=== PATIENT | male | born 1960 ===

== ENCOUNTER 2018-02-18 12:21 | Inpatient (IN) | payer OTHER ==
[2018-02-18 14:35] LABS: BASO % 0.3 % (0.0-2.0); EOS # 0.1 K/uL (0.0-0.7); EOS % 1.9 % (0.0-4.0); HEMOGLOBIN 14.6 g/dL (12.0-18.0); LYMPH # 1.5 K/uL (1.0-4.3); MEAN CELL VOLUME 87.4 fl (80.0-94.0); MEAN CORPUSCULAR HEMOGLOBIN 29.1 pg (27.0-31.0); MEAN CORPUSCULAR HGB CONC 33.3 g/dL (33.0-37.0); MEAN PLATELET VOLUME 8.1 fl (7.2-11.7); MONO # 0.5 K/uL (0.0-0.8); MONO % 8.8 % (0.0-10.0); NEUT # 3.7 K/uL (1.8-7.0); NRBC % 0.1 % (0.0-0.0); RED CELL DISTRIBUTION WIDTH 12.3 % (11.5-14.5); WHITE BLOOD COUNT 5.8 K/uL (4.8-10.8)
--- NOTE | 2018-02-18 14:39 | ED PDOC ---
HPI: Back Time Seen by Provider: 02/18/18 13:09 Chief Complaint (Nursing): Back Pain Chief Complaint (Provider): Back Pain History Per: Patient, [employer] ([place] - [id number]) Onset/Duration Of Symptoms: Days (since 06/2017), Worse Since (x3 days) Previous Symptoms: Back Pain Additional Complaint(s): 57 year old male presents to the ED for evaluation of lower back pain that has worsened over the past x3 days. 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 He had a surgery to repair his legs and has had lower back pain since. He followed up with worker's comp and had an MRI of lumbar spine and in that report which patient brought with him it shows he has L3 through S1 disc herniations. Patient was sent to ED by his PMD, Dr. Matta for further evaluation. Patient reports he took Tylenol yesterday with no relief. Patient reports difficulty sleeping due to the pain as well as difficulty ambulating. Patient denies saddle anesthesia, weakness, numbness, incontinence, IVDA, fever, abdominal pain, chest pain, SOB, N/V/D. PMD: Vitaliy Matta Past Medical History Reviewed: Historical Data, Nursing Documentation, Vital Signs Vital Signs: Last Vital Signs Temp 99.0 F 02/18/18 12:48 Pulse 82 02/18/18 12:48 Resp 19 02/18/18 12:48 BP 138/96 H 02/18/18 12:48 Pulse Ox 97 02/18/18 12:48 - Medical History PMH: No Chronic Diseases - Surgical History Other surgeries: ORIF for Leg Fractures - Family History Family History: States: Unknown Family Hx - Home Medications Home Medications: Ambulatory Orders Medication Instructions Recorded Acetaminophen [Tylenol 325mg tab] 325 mg PO Q6 PRN 02/18/18 RX: Aspirin [Ecotrin] 81 mg PO Q48H 02/18/18 - Allergies Allergies/Adverse Reactions: Allergies Allergy/AdvReac Type Severity Reaction Status Date / Time No Known Allergies Allergy Verified 02/18/18 12:48 Review of Systems ROS Statement: Except As Marked, All Systems Reviewed And Found Negative Musculoskeletal: Positive for: Back Pain Physical Exam - Reviewed Nursing Documentation Reviewed: Yes Vital Signs Reviewed: Yes - Physical Exam Comments: GENERAL APPEARANCE: Patient is awake, alert, oriented x 3, in no acute distress. Patient is ambulatory in ED with steady gait. SKIN: Warm, dry; (-) cyanosis. ENMT: Mucous membranes moist. Airway patent, (-) stridor. NECK: Supple, FROM CHEST AND RESPIRATORY: (-) rales, (-) rhonchi, (-) wheezes; breath sounds equal bilaterally. Respirations even and nonlabored. HEART AND CARDIOVASCULAR: (-) irregularity ABDOMEN AND GI: Soft; (-) tenderness; (-) palpable mass. BACK: (+) diffuse midline lumbar and paralumbar tenderness. NEURO AND PSYCH: Mental status as above. Intact sensation bilaterally; normal strength in extension of the knees, plantar and dorsiflexion of the toes. Speech: clear. (-) facial asymmetry (-) aphasia. - Laboratory Results Result Diagrams: 02/18/18 14:27 02/18/18 14:27 Urine dip results: Negative for: Leukocyte Esterase, Blood, Nitrate, Ketones, Glucose, Bilirubin, Protein - ECG O2 Sat by Pulse Oximetry: 97 (RA) Pulse Ox Interpretation: Normal Medical Decision Making Medical Decision Making: Time: 13:40 Impression: Intractable back pain, herniated discs of lumbar spine Initial Plan: * CMP * ED Urine dip * CBC w/ diff * PTT * Prothrombin time * Ultram PO * Re-evaluation [address] Khuory, resident covering for Dr Hernandez. Arrangements made for admission to med/surg. Patient agreeable to admission at this time. Vitals stable. Udip reviewed and unremarkable. 1515 Labs reviewed and grossly unremarkable. Scribe Attestation: Documented by Julio Wahl, acting as a scribe for Belkys Corona PA-C. Provider Scribe Attestation: All medical record entries made by the Scribe were at my direction and personally dictated by me. I have reviewed the chart and agree that the record accurately reflects my personal performance of the history, physical exam, medical decision making, and the department course for this patient. I have also personally directed, reviewed, and agree with the discharge Disposition - Clinical Impression Clinical Impression: Low back pain, Lumbar herniated disc - Patient ED Disposition Is Patient to be Admitted: Yes Counseled Patient/Family Regarding: Studies Performed, Diagnosis - Disposition Disposition Time: 14:45 Condition: STABLE - Pt Status Changed To: Hospital Disposition Of: Inpatient - Admit Certification Admit to Inpatient:: After my assessment, the patient will require hospitalization for at least two midnights. This is because of the severity of symptoms shown, intensity of services needed, and/or the medical risk in this patient being treated as an outpatient. - POA Present On Arrival: Falls Or Trauma (june 2017) Results - Lab Results Lab Results: 02/18/18 02/18/18 02/18/18 14:27 14:27 14:27 WBC 5.8 RBC 5.00 Hgb 14.6 Hct 43.7 MCV 87.4 MCH 29.1 MCHC 33.3 RDW 12.3 Plt Count 219 MPV 8.1 Neut % (Auto) 63.0 Lymph % (Auto) 26.0 [place] % (Auto) 8.8 Eos % (Auto) 1.9 Baso % (Auto) 0.3 Neut # (Auto) 3.7 Lymph # (Auto) 1.5 [place] # (Auto) 0.5 Eos # (Auto) 0.1 Baso # (Auto) 0.0 PT 10.8 INR 1.0 APTT 30.3 Sodium 139 Potassium 4.3 Chloride 108 H Carbon Dioxide 22 Anion Gap 13 BUN 13 Creatinine 0.7 L Est GFR ( Amer) > 60 Est GFR (Non-Af Amer) > 60 Random Glucose 96 Calcium 9.3 Total Bilirubin 0.5 AST 22 ALT 42 Alkaline Phosphatase 91 Total Protein 7.5 Albumin 4.1 Globulin 3.4 Albumin/Globulin Ratio 1.2
[2018-02-18 14:46] LABS: PROTHROMBIN TIME 10.8 Seconds (9.8-13.1)
[2018-02-18 14:49] LABS: ALB/GLOB RATIO 1.2 (1.0-2.1); ALBUMIN 4.1 g/dL (3.5-5.0); ALT/SGPT 42 U/L (21-72); AST/SGOT 22 U/L (17-59); BLOOD UREA NITROGEN 13 mg/dl (9-20); CALCIUM 9.3 mg/dL (8.4-10.2); GFR NON-AFRICAN AMERICAN > 60; PARTIAL THROMBOPLASTIN TIME 30.3 Seconds (25.6-37.1)
[2018-02-18] MEDS ORDERED: Oxycodone/Acetaminophen 5/325 mg Tab PO PRN (14:52)
[2018-02-18] MEDS ORDERED: Alum-Mag Hydrox-Simethicone Susp (30 mL) PO PRN (14:52)
--- NOTE | 2018-02-18 16:00 | CP.PCM.CON ---
History of Present Illness - History of Present Illness History of Present Illness: Neurosurgical consult: Dr. Matta Patient is a 57 y/o male with no significant PMH who presents to [facility] with severe lower back pain. 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 He fractured both ankles which both necessitated ORIF. He admits to progressive lower back pain since the time of the injury negatively affecting his daily activities such as sitting, walking and lying down when sleeping. He admits to pain radiating to both legs, left greater than right, associated with occassional numbness and tingling. He denies saddle paresthesias and bowel/bladder incontinence. He also admits to a injury which occurred as a child as he fell onto a large stick impaling his lower back. The wound was repaired but left a large indent to his mid lower back. He also denies CP/SOB/N/V/D/fever/dysuria/melena. Review of Systems - Review of Systems All systems: reviewed and no additional remarkable complaints except Review of Systems: as per HPI Past Patient History - Infectious Disease Hx of Infectious Diseases: None - Past Medical History & Family History Past Family History: Reviewed and not pertinent - Past Social History Smoking Status: Never Smoked Alcohol: None Drugs: Denies - CARDIAC Hx Cardiac Disorders: No - PULMONARY Hx Respiratory Disorders: No - NEUROLOGICAL Hx Neurological Disorder: No - HEENT Hx HEENT Problems: No - RENAL Hx Chronic Kidney Disease: No - ENDOCRINE/METABOLIC Hx Endocrine Disorders: No - HEMATOLOGICAL/ONCOLOGICAL Hx Blood Disorders: No - INTEGUMENTARY Hx Dermatological Problems: No - MUSCULOSKELETAL/RHEUMATOLOGICAL Hx Musculoskeletal Disorders: Yes Hx Back Pain: Yes - GASTROINTESTINAL Hx Gastrointestinal Disorders: No - GENITOURINARY/GYNECOLOGICAL Hx Genitourinary Disorders: No - PSYCHIATRIC Hx Psychophysiologic Disorder: No Hx Substance Use: No - SURGICAL HISTORY Hx Surgeries: Yes Other/Comment: BILATERAL ANKLE ORIF 06/2017 - ANESTHESIA Hx Anesthesia: Yes Hx Anesthesia Reactions: No Hx Malignant Hyperthermia: No Meds Allergies/Adverse Reactions: Allergies Allergy/AdvReac Type Severity Reaction Status Date / Time No Known Allergies Allergy Verified 02/18/18 12:48 - Medications Medications: Current Medications Acetaminophen (Tylenol 325mg Tab) 650 mg PO Q4 PRN PRN Reason: Pain, moderate (4-7) Al Hydrox/Mg Hydrox/Simethicone (Maalox Plus 30 Ml) 30 ml PO DAILY PRN PRN Reason: Indigestion / Heartburn Oxycodone/Acetaminophen (Percocet 5/325 Mg Tab) 1 tab PO Q4 PRN PRN Reason: Pain, severe (8-10) Stop: 02/21/18 14:53 Physical Exam - Constitutional Appears: Well, No Acute Distress - Head Exam Head Exam: ATRAUMATIC, NORMOCEPHALIC - Eye Exam Eye Exam: EOMI, Normal appearance, PERRL - ENT Exam ENT Exam: Mucous Membranes Moist - Neck Exam Neck exam: Positive for: Tenderness (midline, mild pain with ROM) - Respiratory Exam Respiratory Exam: NORMAL BREATHING PATTERN - Cardiovascular Exam Cardiovascular Exam: +S1, +S2 - GI/Abdominal Exam GI & Abdominal Exam: Soft. absent: Tenderness - Extremities Exam Extremities exam: Positive for: normal inspection Additional comments: bilateral lateral ankle scars well healed - Back Exam Additional comments: Large indent to mid lower back no lesions, no masses, no drainage, no erythema tenderness to lumbar midline and bilateral paraspinal sensation intact FN/SP/DP/TN motor intact EHL/FHL/TA/G reflexes intact neg clonus neg b/l SLR in supine position - Neurological Exam Neurological exam: Alert, CN II-XII Intact, Oriented x3 - Psychiatric Exam Psychiatric exam: Normal Affect, Normal Mood - Skin Skin Exam: Normal Color, Warm Results - Vital Signs Recent Vital Signs: Last Vital Signs Temp 99.0 F 02/18/18 12:48 Pulse 82 02/18/18 12:48 Resp 19 02/18/18 12:48 BP 138/96 H 02/18/18 12:48 Pulse Ox 97 02/18/18 15:15 - Labs Result Diagrams: 02/18/18 14:27 02/18/18 14:27 Labs: Laboratory Results - last 24 hr 02/18/18 02/18/18 02/18/18 14:27 14:27 14:27 WBC 5.8 RBC 5.00 Hgb 14.6 Hct 43.7 MCV 87.4 MCH 29.1 MCHC 33.3 RDW 12.3 Plt Count 219 MPV 8.1 Neut % (Auto) 63.0 Lymph % (Auto) 26.0 [place] % (Auto) 8.8 Eos % (Auto) 1.9 Baso % (Auto) 0.3 Neut # (Auto) 3.7 Lymph # (Auto) 1.5 [place] # (Auto) 0.5 Eos # (Auto) 0.1 Baso # (Auto) 0.0 PT 10.8 INR 1.0 APTT 30.3 Sodium 139 Potassium 4.3 Chloride 108 H Carbon Dioxide 22 Anion Gap 13 BUN 13 Creatinine 0.7 L Est GFR ( Amer) > 60 Est GFR (Non-Af Amer) > 60 Random Glucose 96 Calcium 9.3 Total Bilirubin 0.5 AST 22 ALT 42 Alkaline Phosphatase 91 Total Protein 7.5 Albumin 4.1 Globulin 3.4 Albumin/Globulin Ratio 1.2 Assessment & Plan (1) Lumbar spondylosis Assessment and Plan: -Dr. Matta recommends OR tomorrow AM for L L5-S1 lumbar laminotomy -admit to Dr. Hernandez -NPO pMN -Risks/benefits/alternatives were d/w patient who understands and agrees to proceed with procedure above. -above d/w Dr. Matta in agreement Status: Acute
[2018-02-18] MEDS ORDERED: Sodium Chloride 0.9% 1,000 ML IV SCH (22:30)
[2018-02-19] MEDS ORDERED: Propofol 10 mg/ml Inj (20 ML) ONE (07:25)
[2018-02-19] MEDS ORDERED: Rocuronium 10 mg/ml (5 ml) ONE (07:25)
[2018-02-19] MEDS ORDERED: Midazolam 2 MG/2 ML VIAL ONE (07:25)
[2018-02-19] MEDS ORDERED: Neostigmine 1:1000 (1 mg/ml) Inj ONE (07:26)
[2018-02-19] MEDS ORDERED: Succinylcholine 200 mg/10 ml Inj IV ONE (07:26)
[2018-02-19] MEDS ORDERED: Lidocaine 1% 5ml Abboject ONE (07:26)
[2018-02-19] MEDS ORDERED: Lidocaine 4% (Laryng-O-Jet) Kit MM ONE (07:26)
[2018-02-19] MEDS ORDERED: Bacitracin Ointment 30 GM TUBE ONE (08:02)
[2018-02-19] MEDS ORDERED: Lidocaine 1% w Epi 1:100,000 Inj ONE (08:03)
[2018-02-19] MEDS ORDERED: Lactated Ringer's 1,000 ML IV ONE ×2 (09:00→10:10)
[2018-02-19] MEDS ORDERED: Phenylephrine 10 mg/ml Inj ONE (09:33)
[2018-02-19] MEDS ORDERED: Absorbable Gelatin Sponge Size 12-7 ONE ×2 (09:38→10:01)
[2018-02-19] MEDS ORDERED: Bupivacaine 0.5% Inj(30mL) ONE (09:38)
[2018-02-19] MEDS ORDERED: Absorbable Gelatin Sponge Size 12-7 TP ONE (10:01)
[2018-02-19] MEDS ORDERED: Bupivacaine 0.5% Inj(30mL) IJ ONE (10:35)
[2018-02-19] MEDS ORDERED: Oxycodone/Acetaminophen 5/325 mg Tab PO PRN (10:47)
[2018-02-19] MEDS ORDERED: HYDROmorphone 0.5 mg/0.5 ml ISec IVP PRN (10:59)
[2018-02-19] MEDS ORDERED: Lactated Ringer's 1,000 ML IV SCH ×2 (11:00)
--- NOTE | 2018-02-19 11:18 | PCM.SURG1 ---
Surgeon's Initial Post Op Note - Surgeon's Notes Surgeon: Vitaliy Matta MD Commissary Worker: Josef Harris PA-C Type of Anesthesia: General Endo Anesthesia Administered By: Harjeet MCGOWAN Pre-Operative Diagnosis: Lumbar spondylosis Operative Findings: L5-S1 lumbar spondylosis and Left sided HNP Post-Operative Diagnosis: as above Operation Performed: L5-S1 laminotomy and microdiscectomy Specimen/Specimens Removed: none Estimated Blood Loss: EBL {In ML}: 180 Blood Products Given: N/A Drains Used: No Drains (x1 left) Post-Op Condition: Good Date of Surgery/Procedure: 02/19/18 Time of Surgery/Procedure: 08:57
--- NOTE | 2018-02-19 14:50 | CP.PCM.HP ---
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 Pt reports low back pain is severe, radiates to both legs till feet, and associated with intermittent parestehsias. Pt is sc heduled to have a lumbar orthopedic surgical procedure. --Today, pt was seen and examined by bedside at recovery PACU with Dr Hernandez. Pt reported feeling OK, denied pain. Pt afebrile with NO acute events overnight. PMHx: denied PSHx: denied FHx: NC SHx: denied tobacco, alcohol or rec drugs Present on Admission - Present on Admission Any Indicators Present on Admission: No Review of Systems - Constitutional Constitutional: absent: Chills, Fever - EENT Eyes: absent: Change in Vision Nose/Mouth/Throat: absent: Nasal Congestion, Dysphagia, Sore Throat, Neck Pain - Cardiovascular Cardiovascular: absent: Chest Pain, Claudication, Dyspnea, Edema - Respiratory Respiratory: absent: Cough, Dyspnea, Hemoptysis - Gastrointestinal Gastrointestinal: absent: Abdominal Pain, Bloating, Hematochezia, Nausea, Vomiting - Genitourinary Genitourinary: absent: Dysuria, Hematuria Past Patient History - Infectious Disease Hx of Infectious Diseases: None - Past Medical History & Family History Past Medical History?: Yes - Past Social History Smoking Status: Never Smoked - CARDIAC Hx Cardiac Disorders: No - PULMONARY Hx Respiratory Disorders: No - NEUROLOGICAL Hx Neurological Disorder: No - HEENT Hx HEENT Problems: No - RENAL Hx Chronic Kidney Disease: No - ENDOCRINE/METABOLIC Hx Endocrine Disorders: No - HEMATOLOGICAL/ONCOLOGICAL Hx Blood Disorders: No - INTEGUMENTARY Hx Dermatological Problems: No - MUSCULOSKELETAL/RHEUMATOLOGICAL Hx Musculoskeletal Disorders: Yes Hx Falls: Yes - GASTROINTESTINAL Hx Gastrointestinal Disorders: No - GENITOURINARY/GYNECOLOGICAL Hx Genitourinary Disorders: No - PSYCHIATRIC Hx Psychophysiologic Disorder: No Hx Substance Use: No - SURGICAL HISTORY Hx Surgeries: Yes Other/Comment: BILATERAL ANKLE ORIF 06/2017 - ANESTHESIA Hx Anesthesia: Yes Hx Anesthesia Reactions: No Hx Malignant Hyperthermia: No Meds Allergies/Adverse Reactions: Allergies Allergy/AdvReac Type Severity Reaction Status Date / Time No Known Allergies Allergy Verified 02/18/18 12:48 Physical Exam - Constitutional Appears: Well, No Acute Distress - Head Exam Head Exam: NORMAL INSPECTION - Eye Exam Eye Exam: EOMI, Normal appearance - ENT Exam ENT Exam: Mucous Membranes Moist - Neck Exam Neck exam: Positive for: Full Rom, Normal Inspection. Negative for: Meningismus - Respiratory Exam Respiratory Exam: NORMAL BREATHING PATTERN. absent: Rales, Rhonchi, Wheezes - Cardiovascular Exam Cardiovascular Exam: +S1, +S2 - GI/Abdominal Exam GI & Abdominal Exam: Soft, Tenderness. absent: Guarding, Rigid - Extremities Exam Extremities exam: Negative for: calf tenderness, pedal edema, tenderness - Neurological Exam Neurological exam: Alert, Oriented x3 Results - Vital Signs Recent Vital Signs: Last Vital Signs Temp 98.2 F 02/19/18 13:02 Pulse 100 H 02/19/18 13:02 Resp 17 02/19/18 13:02 BP 128/81 02/19/18 13:02 Pulse Ox 95 02/19/18 13:02 - Labs Result Diagrams: 02/18/18 14:27 02/18/18 14:27 Labs: Laboratory Results - last 24 hr 02/18/18 02/18/18 14:27 14:27 PT 10.8 INR 1.0 APTT 30.3 Sodium 139 Potassium 4.3 Chloride 108 H Carbon Dioxide 22 Anion Gap 13 BUN 13 Creatinine 0.7 L Est GFR ( Amer) > 60 Est GFR (Non-Af Amer) > 60 Random Glucose 96 Calcium 9.3 Total Bilirubin 0.5 AST 22 ALT 42 Alkaline Phosphatase 91 Total Protein 7.5 Albumin 4.1 Globulin 3.4 Albumin/Globulin Ratio 1.2 Assessment & Plan - Assessment and Plan (Free Text) Assessment: 57 y/o M with NO PMHx admitted for evaluation and management s/p Lumbar microdistectomy L5-S1. Plan: --Stable --Orthopedic Surgery on board, Dr Matta --Continue management as ordered. Case discussed with Dr Hernandez. - Date & Time Date: 02/19/18 Time: 09:00
--- NOTE | 2018-02-19 15:34 | RAD ---
Date of service: 02/19/2018 PROCEDURE: Intraoperative Fluoroscopy. HISTORY: LUMBAR MICRODISCECTOMY FINDINGS: Fluoroscopic assistance was provided. Fluoroscopy time = 7.8 sec. Radiation dose = 4.94 mGy. Please refer to the operative report for additional details..
[2018-02-19] MEDS ORDERED: Dexamethasone 4 MG in Sodium Chloride 0.9% 50 ML IVPB SCH (16:00)
[2018-02-19] MEDS: Dexamethasone 4 mg/1 ml IVP SCH ×2 (16:28→22:52)
[2018-02-19] MEDS: ceFAZolin 2 GM in Sodium Chloride 0.9% 100 ML IVPB SCH (17:11)
--- NOTE | 2018-02-19 20:36 | CARD ---
APPROVED REPORT Date of service: 02/19/2018 EKG Measurement Heart [id number] <Conclusion> Normal sinus rhythm Normal ECG
[2018-02-19] MEDS: Benzocaine/Menthol (Cepacol) Lozenge PO PRN (23:34)
[2018-02-20] MEDS: ceFAZolin 2 GM in Sodium Chloride 0.9% 100 ML IVPB SCH ×3 (01:06→17:27)
--- NOTE | 2018-02-20 01:22 | OP ---
PROCEDURE DATE: 02/19/2018 PREOPERATIVE DIAGNOSIS: Lumbar herniated disk at L5-S1. POSTOPERATIVE DIAGNOSIS: Lumbar herniated disk at L5-S1. PROCEDURES: Lumbar laminectomy, medial facetectomy and foraminotomy. SURGEON: Vitaliy Matta MD INSULATION NOZZLEMAN: Josef Harris, physician hospital aides and assistants teacher, who helped me to perform the surgery, stayed throughout the case from the beginning to the end. DESCRIPTION OF PROCEDURE: The patient was brought to the operating room and after general endotracheal anesthesia, placed in a prone position on the Heriberto table. Care was taken to protect all the pressure points. Back of the lumbar area was thoroughly prepped and draped in standard sterile manner after marking for the skin incision for lumbar laminectomy at L5-S1. After prepping and draping the area, the skin has been incised. Bleeding skin has been controlled with bipolar government relations analyst. After using a Bovie government relations analyst, paraspinal muscles had been attached to the spinous process of the lamina of L5-S1 on the left side. Pao retractor has been applied to alter the facet joint of L5-S1. At this point, fluoroscopy has been used and confirmed at this level. By using high-speed drill, the lamina of L5-S1 has been drilled. Drilling was continued till the laminectomy on the left side has been performed of L5 and superior part of S1. Later, the medial part of the facet also has been drilled. Ligamentum flavum has been removed. Foraminotomy was performed. Part of the spinous process has been removed and at this point, disk space has been examined. There was herniated disk noted; however, it was not extruded. Hence, foraminotomy which was done helped to the relaxation of never root. After that, hemostasis was best achieved. Heriberto drain was placed in the wound and brought out through a separate stab neck skin incision. Muscles and fascia were closed with 1 Vicryl, subcutaneous tissue with 3-0 Vicryl, and skin has been with intradermal 3-0 Vicryl stitches. The patient tolerated the procedures. After procedure, he was mobilized to the recovery room in stabilized neurological condition. Vitaliy Matta MD [facility] # [id number]
[2018-02-20] MEDS: Dexamethasone 4 mg/1 ml IVP SCH ×3 (04:36→17:29)
[2018-02-20] MEDS: Benzocaine/Menthol (Cepacol) Lozenge PO PRN ×2 (04:46→09:40)
[2018-02-20 06:26] LABS: HEMOGLOBIN 14.2 g/dL (12.0-18.0); MEAN CELL VOLUME 85.9 fl (80.0-94.0); MEAN CORPUSCULAR HEMOGLOBIN 29.3 pg (27.0-31.0); MEAN CORPUSCULAR HGB CONC 34.1 g/dL (33.0-37.0); RBC 4.84 Mil/uL (4.40-5.90); RED CELL DISTRIBUTION WIDTH 12.3 % (11.5-14.5); WHITE BLOOD COUNT 10.4 K/uL (4.8-10.8)
[2018-02-20 06:34] LABS: BLOOD UREA NITROGEN 14 mg/dl (9-20); CALCIUM 9.1 mg/dL (8.4-10.2); GFR NON-AFRICAN AMERICAN > 60
--- NOTE | 2018-02-20 09:44 | CP.PCM.PN ---
Subjective - Date & Time of Evaluation Date of Evaluation: 02/20/18 Time of Evaluation: 08:00 - Subjective Subjective: Patient states pain is well controlled. Denies CP/SOB/dizziness/numbness/tingling. Objective - Vital Signs/Intake and Output Vital Signs (last 24 hours): Temp Pulse Resp BP Pulse Ox 98.3 F 82 19 119/63 93 L 02/20/18 08:02 02/20/18 08:02 02/20/18 08:02 02/20/18 08:02 02/20/18 08:02 Intake and Output: 02/20/18 02/20/18 06:59 18:59 Output Total 55 Balance -55 - Medications Medications: Current Medications Acetaminophen (Tylenol 325mg Tab) 650 mg PO Q6 PRN PRN Reason: Pain, moderate (4-7) Al Hydrox/Mg Hydrox/Simethicone (Maalox Plus 30 Ml) 30 ml PO DAILY PRN PRN Reason: Indigestion / Heartburn Benzocaine/Menthol (Cepacol Sore Throat) 1 norma PO Q4 PRN PRN Reason: Sore Throat Last Admin: 02/20/18 04:46 Dose: 1 norma Cyclobenzaprine HCl (Flexeril) 10 mg PO Q8 PRN PRN Reason: Muscle spasm Dexamethasone (Decadron Inj) 4 mg IVP Q6 [facility] Stop: 02/20/18 16:01 Last Admin: 02/20/18 04:36 Dose: 4 mg Docusate Sodium (Colace) 100 mg PO BID [facility] Last Admin: 02/19/18 16:25 Dose: 100 mg Cefazolin Sodium 2 gm/ Sodium (Chloride) 100 mls @ 100 mls/hr IVPB Q8 [facility]; Protocol Stop: 02/20/18 17:59 Last Admin: 02/20/18 01:06 Dose: 100 mls/hr Lactated Ringer's (Lactated Ringer's) 1,000 mls @ 100 mls/hr IV .Q10H [facility] Last Admin: 02/20/18 07:39 Dose: 100 mls/hr Lactated Ringer's (Lactated Ringer's) 1,000 mls @ 100 mls/hr IV .Q10H [facility] Morphine Sulfate (Morphine) 2 mg IVP Q4 PRN PRN Reason: Pain, severe (8-10) Oxycodone/Acetaminophen (Percocet 5/325 Mg Tab) 1 tab PO Q4 PRN PRN Reason: Pain, severe (8-10) Stop: 02/21/18 14:53 Oxycodone/Acetaminophen (Percocet 5/325 Mg Tab) 2 tab PO Q4 PRN PRN Reason: Pain, moderate (4-7) Stop: 02/22/18 10:48 - Labs Labs: 02/20/18 06:00 02/20/18 06:00 PT 10.8 Seconds (9.8-13.1) 02/18/18 14:27 INR 1.0 02/18/18 14:27 APTT 30.3 Seconds (25.6-37.1) 02/18/18 14:27 - Back Exam Additional comments: 115cc since PACU small amount of sang drainage noted on dressing no erythema +ROM ankle/toes/knees/hips 5/5 sensation intact BLE good bed mobility without pain calves soft NT neg homans Assessment and Plan (1) Lumbar spondylosis Assessment & Plan: POD#1 s/p L5/S1 laminectomy EARLE left intact plan for d/c tomorrow if drain can be pulled PT/OT encourage OOB d/w Dr. Matta, agrees with above Status: Acute
--- NOTE | 2018-02-20 17:07 | CP.PCM.PN ---
Subjective - Date & Time of Evaluation Date of Evaluation: 02/20/18 Time of Evaluation: 11:40 - Subjective Subjective: 57 y/o M seen and examined by bedside. Pt reports feeling well with NO acute complaints. Pt able to complete physical therapy. Pt afebrile, tolerating PO with NO acute events overnight. Objective - Vital Signs/Intake and Output Vital Signs (last 24 hours): Temp Pulse Resp BP Pulse Ox 97.8 F 91 H 18 131/75 93 L 02/20/18 16:46 02/20/18 16:46 02/20/18 16:46 02/20/18 16:46 02/20/18 16:46 Intake and Output: 02/20/18 02/20/18 06:59 18:59 Output Total 55 Balance -55 - Medications Medications: Current Medications Acetaminophen (Tylenol 325mg Tab) 650 mg PO Q6 PRN PRN Reason: Pain, moderate (4-7) Al Hydrox/Mg Hydrox/Simethicone (Maalox Plus 30 Ml) 30 ml PO DAILY PRN PRN Reason: Indigestion / Heartburn Benzocaine/Menthol (Cepacol Sore Throat) 1 norma PO Q4 PRN PRN Reason: Sore Throat Last Admin: 02/20/18 09:40 Dose: 1 norma Cyclobenzaprine HCl (Flexeril) 10 mg PO Q8 PRN PRN Reason: Muscle spasm Dexamethasone (Decadron Inj) 4 mg IVP Q8 [facility] Docusate Sodium (Colace) 100 mg PO BID [facility] Last Admin: 02/20/18 09:40 Dose: 100 mg Cefazolin Sodium 2 gm/ Sodium (Chloride) 100 mls @ 100 mls/hr IVPB Q8 [facility]; Protocol Stop: 02/20/18 17:59 Last Admin: 02/20/18 09:39 Dose: 100 mls/hr Lactated Ringer's (Lactated Ringer's) 1,000 mls @ 100 mls/hr IV .Q10H [facility] Last Admin: 02/20/18 07:39 Dose: 100 mls/hr Lactated Ringer's (Lactated Ringer's) 1,000 mls @ 100 mls/hr IV .Q10H [facility] Oxycodone/Acetaminophen (Percocet 5/325 Mg Tab) 1 tab PO Q4 PRN PRN Reason: Pain, severe (8-10) Stop: 02/21/18 14:53 Oxycodone/Acetaminophen (Percocet 5/325 Mg Tab) 2 tab PO Q4 PRN PRN Reason: Pain, moderate (4-7) Stop: 02/22/18 10:48 Senna/Docusate Sodium (Senokot S 50 Mg-8.6 Mg) 1 tab PO HS [facility] - Labs Labs: 02/20/18 06:00 02/20/18 06:00 PT 10.8 Seconds (9.8-13.1) 02/18/18 14:27 INR 1.0 02/18/18 14:27 APTT 30.3 Seconds (25.6-37.1) 02/18/18 14:27 - Additional Findings Additional findings: - Constitutional Appears: Well, No Acute Distress - Head Exam Head Exam: NORMAL INSPECTION - Eye Exam Eye Exam: EOMI, Normal appearance - ENT Exam ENT Exam: Mucous Membranes Moist - Neck Exam Neck exam: Positive for: Full Rom, Normal Inspection. Negative for: Meningismus - Respiratory Exam Respiratory Exam: NORMAL BREATHING PATTERN. absent: Rales, Rhonchi, Wheezes - Cardiovascular Exam Cardiovascular Exam: +S1, +S2 - GI/Abdominal Exam GI & Abdominal Exam: Soft, Tenderness. absent: Guarding, Rigid - Extremities Exam Extremities exam: Negative for: calf tenderness, pedal edema, tenderness - Neurological Exam Neurological exam: Alert, Oriented x3 Assessment and Plan - Assessment and Plan (Free Text) Assessment: 57 y/o M with NO PMHx admitted for evaluation and management s/p Lumbar microdistectomy L5-S1. Plan: --POD 1. --Stable --C/w Physical Therapy --Orthopedic Surgery on board, Dr Matta --d/c tomorrow if drain can be pulled --Continue management as ordered. Case discussed with Dr Hernandez.
[2018-02-20] MEDS ORDERED: Docusate-Senna 50 mg-8.6 mg Tab PO SCH (22:00)
[2018-02-21] MEDS: Dexamethasone 4 mg/1 ml IVP SCH ×2 (00:41→10:26)
[2018-02-21 00:42] VITALS: TEMP 97.7
[2018-02-21 06:35] LABS: HEMOGLOBIN 13.4 g/dL (12.0-18.0); MEAN CELL VOLUME 87.6 fl (80.0-94.0); MEAN CORPUSCULAR HEMOGLOBIN 29.3 pg (27.0-31.0); MEAN CORPUSCULAR HGB CONC 33.5 g/dL (33.0-37.0); RBC 4.56 Mil/uL (4.40-5.90); RED CELL DISTRIBUTION WIDTH 12.8 % (11.5-14.5); WHITE BLOOD COUNT 14.6 K/uL (4.8-10.8)
[2018-02-21 07:05] LABS: BLOOD UREA NITROGEN 17 mg/dl (9-20); GFR NON-AFRICAN AMERICAN > 60
[2018-02-21 08:02] VITALS: BP 113/68; PULSE 79; RESP 19; O2SAT 95
--- NOTE | 2018-02-21 12:39 | CP.PCM.PN ---
Subjective - Date & Time of Evaluation Date of Evaluation: 02/21/18 Time of Evaluation: 12:38 - Subjective Subjective: Patient states he is doing well, no new complaints, pain is well controlled. Denies CP?SOB/dizziness/numbness/tingling Objective - Vital Signs/Intake and Output Vital Signs (last 24 hours): Temp Pulse Resp BP Pulse Ox 97.7 F 79 19 113/68 95 02/21/18 08:02 02/21/18 08:02 02/21/18 08:02 02/21/18 08:02 02/21/18 08:02 Intake and Output: 02/21/18 02/21/18 06:59 18:59 Output Total 30 Balance -30 - Medications Medications: Current Medications Acetaminophen (Tylenol 325mg Tab) 650 mg PO Q6 PRN PRN Reason: Pain, moderate (4-7) Al Hydrox/Mg Hydrox/Simethicone (Maalox Plus 30 Ml) 30 ml PO DAILY PRN PRN Reason: Indigestion / Heartburn Benzocaine/Menthol (Cepacol Sore Throat) 1 norma PO Q4 PRN PRN Reason: Sore Throat Last Admin: 02/20/18 09:40 Dose: 1 norma Cyclobenzaprine HCl (Flexeril) 10 mg PO Q8 PRN PRN Reason: Muscle spasm Dexamethasone (Decadron Inj) 4 mg IVP Q8 [facility] Last Admin: 02/21/18 10:26 Dose: 4 mg Docusate Sodium (Colace) 100 mg PO BID [facility] Last Admin: 02/21/18 10:25 Dose: 100 mg Lactated Ringer's (Lactated Ringer's) 1,000 mls @ 100 mls/hr IV .Q10H [facility] Last Admin: 02/20/18 07:39 Dose: 100 mls/hr Lactated Ringer's (Lactated Ringer's) 1,000 mls @ 100 mls/hr IV .Q10H [facility] Oxycodone/Acetaminophen (Percocet 5/325 Mg Tab) 2 tab PO Q4 PRN PRN Reason: Pain, moderate (4-7) Stop: 02/22/18 10:48 Senna/Docusate Sodium (Senokot S 50 Mg-8.6 Mg) 1 tab PO HS [facility] Last Admin: 02/20/18 21:09 Dose: 1 tab - Labs Labs: 02/21/18 05:20 02/21/18 05:20 PT 10.8 Seconds (9.8-13.1) 02/18/18 14:27 INR 1.0 02/18/18 14:27 APTT 30.3 Seconds (25.6-37.1) 02/18/18 14:27 - Back Exam Additional comments: drain 20cc, pulled. Dressing changed. Incision intact, no erythema. Binder intact. +ROM ankles/toes sensation intact +DP/PT pulses, good strength BLE Assessment and Plan (1) Lumbar spondylosis Assessment & Plan: POD#2 s/p L5/S1 laminectomy EARLE out plan for d/c home today PT/OT encourage OOB f/u [address] Matta, call for appt d/w Dr. Matta, agrees with above Status: Acute
--- NOTE | 2018-02-21 14:02 | CP.PCM.DIS ---
Provider - Provider Date of Admission: 02/18/18 14:45 Attending physician: Anant Hernandez MD Primary care physician: Vitaliy Matta MD Consults: 57 y/o M with NO PMHx admitted for evaluation and management s/p Lumbar microdistectomy/laminectomy L5-S1. Pt remained hospitalized for 3 nights, had surgery on 02/19/18. Hospitalization remained with NO complications, pt was able to comple physical therapy. Today would be POD#2, EARLE drainage was removed. -Pt was seen and examined by bedside with Dr Hernandez. Pt reported feeling well, with NO pain. Pt afebrile, tolerating PO, stable, will be d/c home with instructions to follow up with ortho-surgery team. Time Spent in preparation of Discharge (in minutes): 25 Diagnosis - Discharge Diagnosis (1) Lumbar herniated disc Status: Acute Hospital Course - Lab Results Lab Results: Most Recent Lab Values WBC 14.6 K/uL (4.8-10.8) H 02/21/18 05:20 RBC 4.56 Mil/uL (4.40-5.90) 02/21/18 05:20 Hgb 13.4 g/dL (12.0-18.0) 02/21/18 05:20 Hct 40.0 % (35.0-51.0) 02/21/18 05:20 MCV 87.6 fl (80.0-94.0) 02/21/18 05:20 MCH 29.3 pg (27.0-31.0) 02/21/18 05:20 MCHC 33.5 g/dL (33.0-37.0) 02/21/18 05:20 RDW 12.8 % (11.5-14.5) 02/21/18 05:20 Plt Count 236 K/uL (130-400) 02/21/18 05:20 MPV 8.1 fl (7.2-11.7) 02/18/18 14:27 Neut % (Auto) 63.0 % (50.0-75.0) 02/18/18 14:27 Lymph % (Auto) 26.0 % (20.0-40.0) 02/18/18 14:27 Woodruff % (Auto) 8.8 % (0.0-10.0) 02/18/18 14:27 Eos % (Auto) 1.9 % (0.0-4.0) 02/18/18 14:27 Baso % (Auto) 0.3 % (0.0-2.0) 02/18/18 14:27 Neut # (Auto) 3.7 K/uL (1.8-7.0) 02/18/18 14:27 Lymph # (Auto) 1.5 K/uL (1.0-4.3) 02/18/18 14:27 Woodruff # (Auto) 0.5 K/uL (0.0-0.8) 02/18/18 14:27 Eos # (Auto) 0.1 K/uL (0.0-0.7) 02/18/18 14: Baso # (Auto) 0.0 K/uL (0.0-0.2) 02/18/18 14: PT 10.8 Seconds (9.8-13.1) 02/18/18 14: INR 1.0 02/18/18 14:27 APTT 30.3 Seconds (25.6-37.1) 02/18/18 14:27 Sodium 142 mmol/l (132-148) 02/21/18 05:20 Potassium 4.5 MMOL/L (3.6-5.0) 02/21/18 05:20 Chloride 108 mmol/L (98-107) H 02/21/18 05:20 Carbon Dioxide 26 mmol/L (22-30) 02/21/18 05:20 Anion Gap 13 (10-20) 02/21/18 05:20 BUN 17 mg/dl (9-20) 02/21/18 05:20 Creatinine 0.8 mg/dl (0.8-1.5) 02/21/18 05:20 Est GFR ( Amer) > 60 02/21/18 05:20 Est GFR (Non-Af Amer) > 60 02/21/18 05:20 Random Glucose 176 mg/dL (75-110) H 02/21/18 05:20 Calcium 9.0 mg/dL (8.4-10.2) 02/21/18 05:20 Total Bilirubin 0.5 mg/dl (0.2-1.3) 02/18/18 14:27 AST 22 U/L (17-59) 02/18/18 14:27 ALT 42 U/L (21-72) 02/18/18 14:27 Alkaline Phosphatase 91 U/L (38-126) 02/18/18 14:27 Total Protein 7.5 G/DL (6.3-8.2) 02/18/18 14:27 Albumin 4.1 g/dL (3.5-5.0) 02/18/18 14:27 Globulin 3.4 gm/dL (2.2-3.9) 02/18/18 14:27 Albumin/Globulin Ratio 1.2 (1.0-2.1) 02/18/18 14:27 - Hospital Course Hospital Course: - Constitutional Appears: Well, No Acute Distress - Head Exam Head Exam: NORMAL INSPECTION - Eye Exam Eye Exam: EOMI, Normal appearance - ENT Exam ENT Exam: Mucous Membranes Moist - Neck Exam Neck exam: Positive for: Full Rom, Normal Inspection. Negative for: Meningismus - Respiratory Exam Respiratory Exam: NORMAL BREATHING PATTERN. absent: Rales, Rhonchi, Wheezes - Cardiovascular Exam Cardiovascular Exam: +S1, +S2 - GI/Abdominal Exam GI & Abdominal Exam: Soft, Tenderness. absent: Guarding, Rigid - Extremities Exam Extremities exam: Negative for: calf tenderness, pedal edema, tenderness - Neurological Exam Neurological exam: Alert, Oriented x3 - Date & Time of H&P Date of H&P: 02/19/18 Time of H&P: 12:30 Discharge Exam - Head Exam Head Exam: ATRAUMATIC, NORMOCEPHALIC Discharge Plan - Discharge Medications Prescriptions: Cyclobenzaprine [Flexeril] 10 mg PO Q8 PRN #30 tab PRN Reason: Muscle Spasm Docusate Sodium/Sennosides A [Senokot S 50 MG-8.6 MG] 1 tab PO HS #7 tab oxyCODONE/Acetaminophen [Percocet 5/325 mg Tab] 1 tab PO Q6 #20 tab - Follow Up Plan Condition: STABLE Disposition: HOME/ ROUTINE Instructions: Low Back Pain (DC), Intervertebral Discectomy (DC), Getting In and Out of Bed After Back Surgery, Postspine Surgery Precautions Additional Instructions: hacer young con Dr. Matta elizabeth indicado ( 1 semana) Referrals: Vitaliy Matta MD [Primary Care Provider] -
== END 2018-02-21 14:13 | disposition home or self-care (01) | DRG 320 ==
LOC: H.ER 12:21 → H.ERHOLD 14:45 → H.MEDSURG1 21:29 → SUPCPDRO 02-19 09:45
PROVIDERS: ADMIT Family Medicine; ATTEND Family Medicine
PROC: 01NB0ZZ Release Lumbar Nerve, Open Approach (ICD-10-PCS; principal; 2018-02-19 09:45)
DX: M47.816 Spondylosis without myelopathy or radiculopathy, lumbar region (principal); M51.26 Other intervertebral disc displacement, lumbar region; Z87.828 Personal history of other (healed) physical injury and trauma